=== PATIENT | male | born 1990 | race Caucasian/White ===

== ENCOUNTER 2016-08-14 16:31 | Inpatient (IN) | payer MEDICAID ==
[~2016-08-14] VITALS: Ht 170.2 cm; Wt 69.9 kg
[2016-08-14 17:39] LABS: UA SPECIFIC GRAVITY 1.015 (1.005-1.035); microscopic required? YES; urine erythrocyte 2+ (NEGATIVE)
[2016-08-14 17:55] LABS: BASOPHIL % 0.2 % (0-2); PLATELET COUNT 236 x10^3mcL (130-400)
[2016-08-14 18:02] LABS: RED CELL DISTRIBUTION WIDTH 17.7 % (11.5-14.5)
[2016-08-14 18:05] LABS: AMPHETAMINE QUAL UR NONE DETECTED (NEG <=1000)
[2016-08-14 18:43] LABS: ALKALINE PHOSPHATASE 75 U/L (46-116); ALT/SGPT 15 U/L (16-63); AST/SGOT 24 U/L (15-37); BILIRUBIN TOTAL 0.38 mg/dL (0.20-1.00); CALCIUM 7.6 mg/dL (8.5-10.1); CARBON DIOXIDE 22.2 mmol/L (21-32); CHLORIDE SERUM 101 mmol/L (98-107); CREATININE SERUM 1.1 mg/dL (0.7-1.3); GFR1 > 60 mL/min; GLUCOSE SERUM 125 mg/dL (74-106); POTASSIUM SERUM 3.9 mmol/L (3.5-5.1); SODIUM SERUM 133 mmol/L (136-145)
[2016-08-14 18:54] LABS: ALBUMIN 2.9 g/dL (3.4-5.0); CHOLESTEROL 56 mg/dL (<200); TOTAL PROTEIN, SERUM 8.3 g/dL (6.4-8.2)
[2016-08-14 18:55] LABS: HDL CHOLESTEROL 18 mg/dL (40-60)
[2016-08-14 22:18] LABS: CHOLESTEROL/HDL RATIO 3.2
[2016-08-14 22:19] LABS: FREE T4 0.88 ng/dL (0.76-1.46); FREE THYROXINE INDEX 2.1 ug/dL (1.4-4.5); T4(THYROXINE) 6.3 ug/dL (4.7-13.3)
[2016-08-15 00:28] LABS: T3 TOTAL 0.76 ng/mL
[2016-08-15 05:09] VITALS: BP 101/63
[2016-08-15 05:12] LABS: BASOPHIL % 0.2 % (0-2); PLATELET COUNT 214 x10^3mcL (130-400)
[2016-08-15 05:15] LABS: RED CELL DISTRIBUTION WIDTH 17.9 % (11.5-14.5)
[2016-08-15 05:21] LABS: CALCIUM 7.7 mg/dL (8.5-10.1); CARBON DIOXIDE 24.1 mmol/L (21-32); CHLORIDE SERUM 107 mmol/L (98-107); CREATININE SERUM 0.9 mg/dL (0.7-1.3); GFR1 > 60 mL/min; GLUCOSE SERUM 167 mg/dL (74-106); MAGNESIUM 2.4 mg/dL (1.8-2.4); PHOSPHOROUS 3.8 mg/dL (2.5-4.9); POTASSIUM SERUM 4.2 mmol/L (3.5-5.1); SODIUM SERUM 138 mmol/L (136-145)
[2016-08-15 10:09] VITALS: BP 115/60
[2016-08-15 19:02] VITALS: BP 112/66
[2016-08-15 21:20] VITALS: BP 125/67
[2016-08-16 05:59] VITALS: BP 126/74
[2016-08-16 06:12] LABS: PLATELET COUNT 244 x10^3mcL (130-400)
[2016-08-16 06:31] LABS: BASOPHIL % 0 % (0-2); CALCIUM 8.6 mg/dL (8.5-10.1); CARBON DIOXIDE 24.5 mmol/L (21-32); CHLORIDE SERUM 108 mmol/L (98-107); CREATININE SERUM 0.7 mg/dL (0.7-1.3); GFR1 > 60 mL/min; GLUCOSE SERUM 123 mg/dL (74-106); MAGNESIUM 2.4 mg/dL (1.8-2.4); PHOSPHOROUS 3.7 mg/dL (2.5-4.9); POTASSIUM SERUM 4.6 mmol/L (3.5-5.1); SODIUM SERUM 140 mmol/L (136-145)
[2016-08-16 06:32] LABS: rbc morphology (normal/abnorm) ABNORMAL (NORMAL)
[2016-08-16 09:07] VITALS: BP 125/76
[2016-08-16 13:11] VITALS: BP 128/85
[2016-08-16 17:15] VITALS: Ht 170.2 cm; Wt 69.9 kg
[2016-08-16 17:56] VITALS: BP 115/71
[2016-08-16 21:26] VITALS: BP 132/85
[2016-08-17 05:52] VITALS: BP 114/69
[2016-08-17 06:46] LABS: BASOPHIL % 0.2 % (0-2); PLATELET COUNT 303 x10^3mcL (130-400)
[2016-08-17 07:02] LABS: rbc morphology (normal/abnorm) ABNORMAL (NORMAL)
[2016-08-17 07:04] LABS: CALCIUM 8.6 mg/dL (8.5-10.1); CARBON DIOXIDE 20.9 mmol/L (21-32); CHLORIDE SERUM 108 mmol/L (98-107); CREATININE SERUM 0.7 mg/dL (0.7-1.3); GFR1 > 60 mL/min; GLUCOSE SERUM 114 mg/dL (74-106); MAGNESIUM 2.2 mg/dL (1.8-2.4); PHOSPHOROUS 4.8 mg/dL (2.5-4.9); POTASSIUM SERUM 4.1 mmol/L (3.5-5.1); SODIUM SERUM 141 mmol/L (136-145)
[2016-08-17 09:07] LABS: RHEUMATOID ARTHRITIS FACTOR 12.9 IU/mL (0.0-13.9)
[2016-08-17 10:26] VITALS: BP 124/71
[2016-08-17 13:36] VITALS: BP 126/80
[2016-08-17 18:44] VITALS: BP 124/80
[2016-08-17 22:24] VITALS: BP 125/75
[2016-08-18 06:03] VITALS: BP 125/78
[2016-08-18 09:57] VITALS: BP 128/72
[2016-08-18 13:08] VITALS: BP 129/86
[2016-08-18 14:08] LABS: CALCIUM 8.7 mg/dL (8.5-10.1); CARBON DIOXIDE 22.6 mmol/L (21-32); CHLORIDE SERUM 105 mmol/L (98-107); CREATININE SERUM 0.8 mg/dL (0.7-1.3); GFR1 > 60 mL/min; GLUCOSE SERUM 129 mg/dL (74-106); POTASSIUM SERUM 3.9 mmol/L (3.5-5.1); SODIUM SERUM 138 mmol/L (136-145)
[2016-08-18 14:10] LABS: BASOPHIL % 1.2 % (0-2); PLATELET COUNT 340 x10^3mcL (130-400)
[2016-08-18 14:20] LABS: RED CELL DISTRIBUTION WIDTH 16.2 % (11.5-14.5)
[2016-08-18 16:58] VITALS: BP 119/69
[2016-08-18 21:56] VITALS: BP 120/77
[2016-08-19 05:05] VITALS: BP 125/72
[2016-08-19 06:29] LABS: CALCIUM 8.9 mg/dL (8.5-10.1); CARBON DIOXIDE 24.4 mmol/L (21-32); CHLORIDE SERUM 105 mmol/L (98-107); CREATININE SERUM 0.7 mg/dL (0.7-1.3); GFR1 > 60 mL/min; GLUCOSE SERUM 106 mg/dL (74-106); POTASSIUM SERUM 4.3 mmol/L (3.5-5.1); SODIUM SERUM 137 mmol/L (136-145)
[2016-08-19 06:50] LABS: PLATELET COUNT 347 x10^3mcL (130-400)
[2016-08-19 07:11] LABS: BASOPHIL % 0 % (0-2); RED CELL DISTRIBUTION WIDTH 17.8 % (11.5-14.5)
[2016-08-19 09:59] VITALS: BP 112/60
[2016-08-19 13:31] VITALS: BP 115/65
[2016-08-19 18:05] VITALS: BP 119/67
[2016-08-19 21:52] VITALS: BP 125/74
[2016-08-20 06:01] VITALS: BP 120/69
[2016-08-20 06:22] LABS: CALCIUM 8.8 mg/dL (8.5-10.1); CARBON DIOXIDE 27.4 mmol/L (21-32); CHLORIDE SERUM 106 mmol/L (98-107); CREATININE SERUM 0.8 mg/dL (0.7-1.3); GFR1 > 60 mL/min; GLUCOSE SERUM 111 mg/dL (74-106); MAGNESIUM 2.4 mg/dL (1.8-2.4); POTASSIUM SERUM 4.4 mmol/L (3.5-5.1); SODIUM SERUM 141 mmol/L (136-145)
[2016-08-20 07:11] LABS: PLATELET COUNT 393 x10^3mcL (130-400)
[2016-08-20 07:16] LABS: RED CELL DISTRIBUTION WIDTH 17.4 % (11.5-14.5)
[2016-08-20 10:14] VITALS: BP 128/69
[2016-08-20 11:33] LABS: BAND NEUTROPHIL 0 % (0-10); BASOPHIL 0 % (0-2); MONOCYTE 15 % (0-7); PLATELET MORPHOLOGY PLATELETS INCREASED; SEGMENTED NEUTROPHILS 62 % (37-75); rbc morphology (normal/abnorm) ABNORMAL (NORMAL)
[2016-08-20 21:54] VITALS: BP 115/55
[2016-08-21 05:16] VITALS: BP 117/70
[2016-08-21 07:20] LABS: BASOPHIL % 0 % (0-2); PLATELET COUNT 434 x10^3mcL (130-400); RED CELL DISTRIBUTION WIDTH 17.2 % (11.5-14.5)
[2016-08-21 10:16] VITALS: BP 122/65
[2016-08-21 18:02] VITALS: BP 119/63
[2016-08-21 22:05] VITALS: BP 118/66
[2016-08-22 06:24] VITALS: BP 115/63
[2016-08-22 09:38] VITALS: BP 127/61
[2016-08-22 17:12] VITALS: BP 113/62
[2016-08-22 21:49] VITALS: BP 109/53
[2016-08-23 05:45] VITALS: BP 117/59
[2016-08-23 08:45] VITALS: BP 129/60
[2016-08-23] MEDS ORDERED: XOPENEX HF0.045 MG/1 INH (11:58)
[2016-08-23] MEDS ORDERED: QVAR0.08 MG/Ac IH (12:09)
[2016-08-23 12:31] VITALS: BP 104/61
[2016-08-23 13:00] VITALS: BP 129/60
[2016-08-23] MEDS ORDERED: NEIGH PO (13:09)
[2016-08-23] MEDS ORDERED: DILANTIN100 MG PO (22:08)
== END 2016-08-23 14:10 | disposition home or self-care (01) | DRG 139 ==
LOC: ED 16:31 → MU 08-15 09:25 → DU 08-15 09:25 → MU 08-20 10:40
PROVIDERS: Emergency Medicine; Family Medicine; ADMIT Family Medicine
DX: J18.9 Pneumonia, unspecified organism (principal); J96.00 Acute respiratory failure, unspecified whether with hypoxia or hypercapnia; N17.0 Acute kidney failure with tubular necrosis; G40.909 Epilepsy, unspecified, not intractable, without status epilepticus; E44.0 Moderate protein-calorie malnutrition; R31.9 Hematuria, unspecified; D47.3 Essential (hemorrhagic) thrombocythemia; D64.9 Anemia, unspecified; Z68.24 Body mass index [BMI] 24.0-24.9, adult
CPT/HCPCS: 36600; 72072; 80307; 83880; 84439; 86431; 86480; 86580; 87116; 87206; 90732; 94150; C9113; J0696; J1165; J2405; J2543; J2920; J2930; J7030; J7613; J7633; Q0092

== ENCOUNTER 2016-11-15 18:50 | Emergency (ER) | payer SELFPAY ==
[~2016-11-15 18:50] MED LIST: DILANTIN100 MG PO; NEIGH PO; QVAR0.08 MG/Ac IH; XOPENEX HF0.045 MG/1 INH
[2016-11-15 20:18] LABS: BASOPHIL % 0 % (0-2); PLATELET COUNT 403 x10^3mcL (130-400); RED CELL DISTRIBUTION WIDTH 19.7 % (11.5-14.5)
[2016-11-15 20:24] LABS: CALCIUM 8.4 mg/dL (8.5-10.1); CARBON DIOXIDE 23.5 mmol/L (21-32); CHLORIDE SERUM 105 mmol/L (98-107); CREATININE SERUM 1.2 mg/dL (0.7-1.3); GFR1 > 60 mL/min; GLUCOSE SERUM 80 mg/dL (74-106); POTASSIUM SERUM 4.5 mmol/L (3.5-5.1); SODIUM SERUM 134 mmol/L (136-145)
[2016-11-15 20:29] LABS: ALKALINE PHOSPHATASE 109 U/L (46-116); ALT/SGPT 9 U/L (16-63); AST/SGOT 34 U/L (15-37); BILIRUBIN TOTAL 0.1 mg/dL (0.20-1.00)
[2016-11-15 20:34] LABS: ALBUMIN 3.2 g/dL (3.4-5.0); TOTAL PROTEIN, SERUM 9.6 g/dL (6.4-8.2)
[2016-11-16 01:15] VITALS: BP 110/52
== END 2016-11-16 01:15 | disposition home or self-care (01) ==
LOC: ED 18:50
PROVIDERS: Emergency Medicine
DX: J40 Bronchitis, not specified as acute or chronic (principal); J06.9 Acute upper respiratory infection, unspecified; D50.9 Iron deficiency anemia, unspecified
CPT/HCPCS: 83880; J0456; J1885; J7050; J7613

== ENCOUNTER 2016-11-18 15:12 | Inpatient (IN) | payer SELFPAY ==
[~2016-11-18] VITALS: Ht 167.6 cm; Wt 66.7 kg
[2016-11-18] MEDS ORDERED: FERROUS SULFAT PO (18:38)
[2016-11-18 18:41] LABS: BASOPHIL % 0.3 % (0-2); PLATELET COUNT 381 x10^3mcL (130-400)
[2016-11-18 18:49] LABS: RED CELL DISTRIBUTION WIDTH 19.7 % (11.5-14.5)
[2016-11-18 18:52] LABS: CALCIUM 7.9 mg/dL (8.5-10.1); CARBON DIOXIDE 21.6 mmol/L (21-32); CHLORIDE SERUM 103 mmol/L (98-107); GFR1 > 60 mL/min; GLUCOSE SERUM 105 mg/dL (74-106); POTASSIUM SERUM 4.1 mmol/L (3.5-5.1); SODIUM SERUM 133 mmol/L (136-145)
[2016-11-18 18:57] LABS: microscopic required? YES; urine erythrocyte NEGATIVE (NEGATIVE)
[2016-11-18 19:06] LABS: ALBUMIN 2.6 g/dL (3.4-5.0); ALKALINE PHOSPHATASE 89 U/L (46-116); ALT/SGPT 8 U/L (16-63); AST/SGOT 24 U/L (15-37); BILIRUBIN TOTAL 0.18 mg/dL (0.20-1.00); T4(THYROXINE) 7.6 ug/dL (4.7-13.3); TOTAL PROTEIN, SERUM 8.6 g/dL (6.4-8.2)
[2016-11-18 22:01] LABS: T3 TOTAL 0.97 ng/mL
[2016-11-18 22:06] LABS: MAGNESIUM 1.3 mg/dL (1.8-2.4); PHOSPHOROUS 3.1 mg/dL (2.5-4.9)
[2016-11-18 22:08] LABS: CHOLESTEROL/HDL RATIO 3.6
[2016-11-18 22:23] LABS: FREE T4 1.15 ng/dL (0.76-1.46); FREE THYROXINE INDEX 2.4 ug/dL (1.4-4.5); T4(THYROXINE) 7.2 ug/dL (4.7-13.3)
[2016-11-19 05:06] LABS: BASOPHIL % 0.3 % (0-2); PLATELET COUNT 389 x10^3mcL (130-400)
[2016-11-19 05:10] LABS: RED CELL DISTRIBUTION WIDTH 19.4 % (11.5-14.5)
[2016-11-19 05:18] LABS: CALCIUM 8.1 mg/dL (8.5-10.1); CARBON DIOXIDE 21.5 mmol/L (21-32); CHLORIDE SERUM 112 mmol/L (98-107); CREATININE SERUM 0.8 mg/dL (0.7-1.3); GFR1 > 60 mL/min; GLUCOSE SERUM 115 mg/dL (74-106); SODIUM SERUM 140 mmol/L (136-145)
[2016-11-19 05:21] LABS: POTASSIUM SERUM 5.7 mmol/L (3.5-5.1)
[2016-11-19 06:53] LABS: AMPHETAMINE QUAL UR NONE DETECTED (NEG <=1000)
[2016-11-19 10:47] LABS: microscopic required? NO
[2016-11-19 10:51] LABS: MAGNESIUM 1.7 mg/dL (1.8-2.4); PHOSPHOROUS 3.8 mg/dL (2.5-4.9)
[2016-11-19 10:53] LABS: UA SPECIFIC GRAVITY <=1.005 (1.005-1.035); urine erythrocyte NEGATIVE (NEGATIVE)
[2016-11-19 11:37] VITALS: BP 139/83
[2016-11-19 15:48] VITALS: BP 139/83
[2016-11-19 16:15] VITALS: Ht 167.6 cm; Wt 66.7 kg
[2016-11-19 18:37] LABS: CALCIUM 7.9 mg/dL (8.5-10.1); CARBON DIOXIDE 25.9 mmol/L (21-32); CHLORIDE SERUM 111 mmol/L (98-107); CREATININE SERUM 0.7 mg/dL (0.7-1.3); GFR1 > 60 mL/min; GLUCOSE SERUM 81 mg/dL (74-106); POTASSIUM SERUM 3.7 mmol/L (3.5-5.1); SODIUM SERUM 143 mmol/L (136-145)
[2016-11-19 18:42] VITALS: BP 121/72
[2016-11-19 22:15] VITALS: BP 119/77
[2016-11-20 06:20] VITALS: BP 118/74
[2016-11-20 06:39] LABS: BASOPHIL % 0.3 % (0-2); PLATELET COUNT 381 x10^3mcL (130-400)
[2016-11-20 06:58] LABS: CALCIUM 7.9 mg/dL (8.5-10.1); CARBON DIOXIDE 23.9 mmol/L (21-32); CHLORIDE SERUM 109 mmol/L (98-107); CREATININE SERUM 0.7 mg/dL (0.7-1.3); GFR1 > 60 mL/min; GLUCOSE SERUM 75 mg/dL (74-106); POTASSIUM SERUM 4.2 mmol/L (3.5-5.1); SODIUM SERUM 138 mmol/L (136-145)
[2016-11-20 07:14] LABS: RED CELL DISTRIBUTION WIDTH 19.3 % (11.5-14.5)
[2016-11-20 11:36] VITALS: BP 133/84
[2016-11-20] MEDS ORDERED: NORCO1 TA1 PO (15:29)
== END 2016-11-20 17:55 | disposition hospice, home (50) | DRG 177 ==
LOC: ED 15:12 → DU 11-19 08:19
PROVIDERS: Emergency Medicine; ADMIT Family Medicine
DX: J15.8 Pneumonia due to other specified bacteria (principal); E43 Unspecified severe protein-calorie malnutrition; E87.1 Hypo-osmolality and hyponatremia; G40.909 Epilepsy, unspecified, not intractable, without status epilepticus; J18.9 Pneumonia, unspecified organism; D64.9 Anemia, unspecified; E87.5 Hyperkalemia; E83.42 Hypomagnesemia; E83.51 Hypocalcemia; M62.50 Muscle wasting and atrophy, not elsewhere classified, unspecified site; E78.1 Pure hyperglyceridemia; D50.9 Iron deficiency anemia, unspecified; Z87.01 Personal history of pneumonia (recurrent)
CPT/HCPCS: 36600; 82962; 83880; 84439; J1885; J1940; J1956; J2270; J2930; J7030; J7613; J7620; J7644; Q0092

== ENCOUNTER 2017-02-25 21:43 | Inpatient (IN) | payer SELFPAY ==
[~2017-02-25] VITALS: Ht 167.6 cm; Wt 67.8 kg
[~2017-02-25 21:43] MED LIST changes: +FERROUS SULFAT PO; +NORCO1 TA1 PO
[2017-02-26 03:08] LABS: BASOPHIL % 1.2 % (0-2); PLATELET COUNT 365 x10^3mcL (130-400)
[2017-02-26 03:11] LABS: CALCIUM 7.6 mg/dL (8.5-10.1); CARBON DIOXIDE 23.5 mmol/L (21-32); CHLORIDE SERUM 103 mmol/L (98-107); CREATININE SERUM 1.4 mg/dL (0.7-1.3); GFR1 > 60 mL/min; GLUCOSE SERUM 80 mg/dL (74-106); POTASSIUM SERUM 4.6 mmol/L (3.5-5.1); SODIUM SERUM 133 mmol/L (136-145)
[2017-02-26 03:20] LABS: ALBUMIN 2.2 g/dL (3.4-5.0); ALKALINE PHOSPHATASE 99 U/L (46-116); ALT/SGPT 10 U/L (16-63); AST/SGOT 28 U/L (15-37); BILIRUBIN TOTAL 0.17 mg/dL (0.20-1.00); FREE T4 1.12 ng/dL (0.76-1.46); LIPASE 135 IU/L (73-393); TOTAL PROTEIN, SERUM 8.8 g/dL (6.4-8.2)
[2017-02-26 03:31] LABS: RED CELL DISTRIBUTION WIDTH 16.3 % (11.5-14.5)
[2017-02-26 03:40] LABS: microscopic required? YES; urine erythrocyte 1+ (NEGATIVE)
[2017-02-26 05:19] LABS: MAGNESIUM 1.9 mg/dL (1.8-2.4); PHOSPHOROUS 3.5 mg/dL (2.5-4.9)
[2017-02-26 05:21] LABS: AMPHETAMINE QUAL UR NONE DETECTED (NEG <=1000)
[2017-02-26 05:29] LABS: T3 TOTAL 0.94 ng/mL
[2017-02-26 05:31] LABS: FREE T4 1.13 ng/dL (0.76-1.46); FREE THYROXINE INDEX 2.2 ug/dL (1.4-4.5); T4(THYROXINE) 6.2 ug/dL (4.7-13.3)
[2017-02-26 14:46] VITALS: BP 122/78
[2017-02-26 17:50] VITALS: BP 115/58
[2017-02-26 21:20] VITALS: BP 115/65
[2017-02-27 01:37] LABS: IRON 14 ug/dL (65-170); TOTAL IRON BINDING CAPACITY 141 ug/dL (250-450)
[2017-02-27 06:27] VITALS: BP 105/56
[2017-02-27 07:25] LABS: BASOPHIL % 0.1 % (0-2); PLATELET COUNT 358 x10^3mcL (130-400); RED BLOOD CELLS 3.86 M/mm3 (4.52-5.90)
[2017-02-27 07:29] LABS: RED CELL DISTRIBUTION WIDTH 18.2 % (11.5-14.5)
[2017-02-27 07:46] LABS: CALCIUM 8.2 mg/dL (8.5-10.1); CARBON DIOXIDE 24.2 mmol/L (21-32); CHLORIDE SERUM 103 mmol/L (98-107); CREATININE SERUM 0.9 mg/dL (0.7-1.3); GFR1 > 60 mL/min; GLUCOSE SERUM 77 mg/dL (74-106); MAGNESIUM 1.7 mg/dL (1.8-2.4); PHOSPHOROUS 3.7 mg/dL (2.5-4.9); POTASSIUM SERUM 4.7 mmol/L (3.5-5.1); SODIUM SERUM 132 mmol/L (136-145)
[2017-02-27 10:21] VITALS: BP 111/67
[2017-02-27 14:13] VITALS: BP 109/57
[2017-02-27 17:53] VITALS: BP 103/58
[2017-02-27 21:00] VITALS: BP 99/51
[2017-02-28 06:36] VITALS: BP 93/48
[2017-02-28 06:36] LABS: PLATELET COUNT 328 x10^3mcL (130-400)
[2017-02-28 06:40] LABS: CALCIUM 8.2 mg/dL (8.5-10.1); CARBON DIOXIDE 22.2 mmol/L (21-32); CHLORIDE SERUM 102 mmol/L (98-107); GFR1 > 60 mL/min; GLUCOSE SERUM 77 mg/dL (74-106); MAGNESIUM 1.8 mg/dL (1.8-2.4); PHOSPHOROUS 3.9 mg/dL (2.5-4.9); POTASSIUM SERUM 4.7 mmol/L (3.5-5.1); SODIUM SERUM 132 mmol/L (136-145)
[2017-02-28 07:50] LABS: RED CELL DISTRIBUTION WIDTH 16.6 % (11.5-14.5)
[2017-02-28 07:54] LABS: ATYPICAL LYMPH 2 %; BAND NEUTROPHIL 4 % (0-10); BASOPHIL 0 % (0-2); MONOCYTE 5 % (0-7); SEGMENTED NEUTROPHILS 71 % (37-75)
[2017-02-28 07:55] LABS: PLATELET MORPHOLOGY PLATELETS INCREASED; rbc morphology (normal/abnorm) ABNORMAL (NORMAL)
[2017-02-28 14:09] VITALS: BP 107/60
[2017-02-28] MEDS ORDERED: GOOD SENSE OMEP20 MG PO (14:47)
[2017-02-28 14:55] VITALS: BP 107/60
[2017-02-28] MEDS ORDERED: BACO TOP (15:02)
[2017-02-28] MEDS ORDERED: HIBICLENS118 ML TOP (15:02)
== END 2017-02-28 15:37 | disposition home or self-care (01) | DRG 391 ==
LOC: ED 21:43 → DU 02-26 13:25
PROVIDERS: Emergency Medicine; Family Medicine; Internal Medicine Gastroenterology; ADMIT Family Medicine Sports Medicine
PROC: 0D758ZZ Dilation of Esophagus, Via Natural or Artificial Opening Endoscopic (ICD-10-PCS; principal; 2017-02-28 09:30)
PROC: 0DB68ZX Excision of Stomach, Via Natural or Artificial Opening Endoscopic, Diagnostic (ICD-10-PCS; 2017-02-28 09:30)
DX: K21.9 Gastro-esophageal reflux disease without esophagitis (principal); N17.0 Acute kidney failure with tubular necrosis; E43 Unspecified severe protein-calorie malnutrition; J69.0 Pneumonitis due to inhalation of food and vomit; E87.1 Hypo-osmolality and hyponatremia; D64.9 Anemia, unspecified; Z83.3 Family history of diabetes mellitus; R31.9 Hematuria, unspecified; E03.9 Hypothyroidism, unspecified; Z68.24 Body mass index [BMI] 24.0-24.9, adult; E83.42 Hypomagnesemia
CPT/HCPCS: 43235; 83880; 84439; 90658; J0696; J1165; J1170; J1200; J1610; J1956; J2250; J2310; J2765; J3010; J3490; J7030; J7050; Q0092

== ENCOUNTER 2017-04-02 16:31 | Emergency (ER) | payer SELFPAY ==
[~2017-04-02] VITALS: Ht 160 cm; Wt 61.7 kg
[~2017-04-02 16:31] MED LIST changes: +BACO TOP; +GOOD SENSE OMEP20 MG PO; +HIBICLENS118 ML TOP
[2017-04-02 17:29] LABS: BASOPHIL % 0.1 % (0-2)
[2017-04-02 17:32] LABS: PLATELET COUNT 568 x10^3mcL (130-400); RED CELL DISTRIBUTION WIDTH 18.8 % (11.5-14.5)
[2017-04-02 17:38] LABS: CHLORIDE SERUM 102 mmol/L (98-107); GFR1 > 60 mL/min; GLUCOSE SERUM 104 mg/dL (74-106); POTASSIUM SERUM 4.3 mmol/L (3.5-5.1); SODIUM SERUM 132 mmol/L (136-145)
[2017-04-02 17:49] LABS: ALKALINE PHOSPHATASE 111 U/L (46-116); ALT/SGPT 12 U/L (16-63); AST/SGOT 25 U/L (15-37); BILIRUBIN TOTAL 0.2 mg/dL (0.20-1.00)
[2017-04-02 17:59] LABS: ALBUMIN 2.4 g/dL (3.4-5.0); TOTAL PROTEIN, SERUM 10.2 g/dL (6.4-8.2)
[2017-04-02 18:07] LABS: AMPHETAMINE QUAL UR NONE DETECTED (NEG <=1000)
[2017-04-02 18:22] LABS: CREATINE KINASE 13 U/L (39-308)
[2017-04-02 18:56] LABS: CK-MB < 0.5 ng/mL (0-3.6)
[2017-04-02 19:08] VITALS: BP 133/90
[2017-04-02 20:15] VITALS: BP 130/81
== END 2017-04-02 20:28 | disposition short-term general hospital (02) ==
LOC: ED 16:31
PROVIDERS: Emergency Medicine
DX: J38.7 Other diseases of larynx (principal); J05.10 Acute epiglottitis without obstruction
CPT/HCPCS: 36600; 83880; 86308; J0696; J1100; J2704; J3490; J7030

== ENCOUNTER 2017-10-11 18:41 | Emergency (ER) | payer MEDICAID ==
[~2017-10-11] VITALS: Ht 170.2 cm; Wt 64.4 kg
[2017-10-11 18:57] VITALS: Ht 170.2 cm; Wt 64.4 kg
[2017-10-11 19:29] LABS: BASOPHIL % 0.1 % (0-2)
[2017-10-11 19:30] LABS: PLATELET COUNT 466 x10^3mcL (130-400); RED CELL DISTRIBUTION WIDTH 24.1 % (11.5-14.5)
[2017-10-11 19:31] LABS: rbc morphology (normal/abnorm) ABNORMAL (NORMAL)
[2017-10-11 19:37] LABS: CALCIUM 8.8 mg/dL (8.5-10.1); CARBON DIOXIDE 24.6 mmol/L (21-32); CHLORIDE SERUM 104 mmol/L (98-107); CREATININE SERUM 0.8 mg/dL (0.7-1.3); GFR1 > 60 mL/min; GLUCOSE SERUM 87 mg/dL (74-106); MAGNESIUM 2.1 mg/dL (1.8-2.4); POTASSIUM SERUM 3.9 mmol/L (3.5-5.1); SODIUM SERUM 135 mmol/L (136-145)
[2017-10-11 20:16] VITALS: BP 139/94
== END 2017-10-11 20:28 | disposition home or self-care (01) ==
LOC: ED 18:41
PROVIDERS: Emergency Medicine
DX: M79.605 Pain in left leg (principal); M79.604 Pain in right leg; M79.602 Pain in left arm; M79.601 Pain in right arm; Z87.39 Personal history of other diseases of the musculoskeletal system and connective tissue
CPT/HCPCS: J1885; J2060; J2270; J2405; J7030

== ENCOUNTER 2017-12-14 20:11 | Emergency (ER) | payer MEDICAID ==
[~2017-12-14] VITALS: Ht 170.2 cm; Wt 65.0 kg
[2017-12-14 20:39] VITALS: Ht 170.2 cm; Wt 65.0 kg
[2017-12-14 22:16] VITALS: BP 116/67
== END 2017-12-14 22:16 | disposition home or self-care (01) ==
LOC: ED 20:11
DX: M25.562 Pain in left knee (principal); M32.9 Systemic lupus erythematosus, unspecified; M79.641 Pain in right hand; M79.642 Pain in left hand; M25.532 Pain in left wrist; M25.531 Pain in right wrist; M25.511 Pain in right shoulder
CPT/HCPCS: J1885

== ENCOUNTER 2018-01-02 20:03 | Emergency (ER) | payer MEDICAID ==
[~2018-01-02] VITALS: Ht 170.2 cm; Wt 60.8 kg
[2018-01-02 20:17] VITALS: Ht 170.2 cm; Wt 60.8 kg
[2018-01-02 21:11] VITALS: BP 118/77
== END 2018-01-02 21:11 | disposition home or self-care (01) ==
LOC: ED 20:03
DX: R10.12 Left upper quadrant pain (principal); R11.0 Nausea; J18.9 Pneumonia, unspecified organism
CPT/HCPCS: J1885; Q0162

== ENCOUNTER 2018-02-24 05:24 | Emergency (ER) | payer MEDICAID ==
[~2018-02-24] VITALS: Ht 170.2 cm; Wt 81.6 kg
[2018-02-24 05:36] VITALS: Ht 170.2 cm; Wt 81.6 kg
[2018-02-24 06:56] VITALS: BP 75/25
== END 2018-02-24 12:30 | disposition expired ==
LOC: ED 05:24
DX: A41.9 Sepsis, unspecified organism (principal); I46.9 Cardiac arrest, cause unspecified; R65.20 Severe sepsis without septic shock; J81.0 Acute pulmonary edema
CPT/HCPCS: 36600; 82962; 87804; G0480; J1610; J1720; J2543; J3490; J7040; J7050; Q0092